=== PATIENT | male | born 1955 | race Two or more races ===

== ENCOUNTER 2020-12-10 02:51 | Inpatient (IN) | payer BC, OTHER ==
[~2020-12-10] VITALS: Ht 177.8 cm; Wt 84.8 kg
--- NOTE | 2020-12-10 03:10 | NUR ---
[id number] c/o anxiety after taking Marijuana Edibles. Fiance called 911. Patient alert and oriented x3. ambulatory with non labored breathing. Patient placed on monitor.
[2020-12-10 03:57] LABS: BASOPHILS % (AUTO) 0.3 % (0.0-2.0); HEMATOCRIT 36 % (39-51); HEMOGLOBIN 12.1 g/dL (13.5-17.5); LYMPHOCYTES # (AUTO) 0.7 K/uL (0.8-4.8); MEAN CORPUSCULAR HGB CONC 33 g/dl (31.0-36.0); MEAN CORPUSCULAR VOLUME 91 fL (80-96); MONOCYTES # (AUTO) 0.4 K/uL (0.1-1.30); NEUTROPHILS # (AUTO) 2.9 K/uL (1.8-8.9); NEUTROPHILS % (AUTO) 65.7 % (43.0-81.0); PLATELET COUNT (AUTO) 138 K/uL (150-450); RED BLOOD CELL COUNT(AUTO) 4.01 MIL/uL (4.5-6.0); WHITE BLOOD COUNT (AUTO) 4.5 K/uL (4.3-11.0)
[2020-12-10 03:59] LABS: CALCIUM, SERUM 8.9 mg/dL (8.5-10.1); CARBON DIOXIDE 28 mmol/L (21-32); CHLORIDE 106 mmol/L (98-107); CREATININE 1.1 mg/dL (0.6-1.3); GLUCOSE 96 mg/dL (74-106); POTASSIUM 4.2 mmol/L (3.5-5.1); SODIUM SERUM 143 mmol/L (136-145); UREA NITROGEN, BLOOD 18 mg/dL (7-18)
--- NOTE | 2020-12-10 03:59 | NUR ---
PT TALKING TO NEUROLOGIST ON TELEHEALTH COMPUTER.
--- NOTE | 2020-12-10 04:07 | NUR ---
JULIÁN TOMAS TALKING TO NEUROLOGIST OVER THEPHONE.
[2020-12-10 04:18] LABS: CHOLESTEROL 125 mg/dL (<200); HDL CHOLESTEROL 50 mg/dL (40-60); LDL 58 mg/dL (0-99); TRIGLYCERIDES 65 mg/dL (30-150)
[2020-12-10] MEDS ORDERED: ASPIRIN 81 MG TAB.CHEW ONE (05:23)
[2020-12-10] MEDS ORDERED: ASPIRIN 81 MG TAB.CHEW PO ONE (05:30)
--- NOTE | 2020-12-10 05:55 | NUR ---
CALLED NURSING SUP FOR BED ASSIGNEMENT
[2020-12-10 06:34] LABS: EOSINOPHILS % (MANUAL) 7 % (0-4); LYMPHOCYTES % (MANUAL) 8 % (16-48); MONOCYTES % (MANUAL) 4 % (0-11.0); NEUTROPHILS % (MANUAL) 81 (42-76)
--- NOTE | 2020-12-10 06:34 | NUR ---
Patient is sleeping. easily arousable. breathing evenly and unlabored on room air. connected to the monitor. Side rails are up for safety. Call light is within reach.
[2020-12-10] MEDS ORDERED: CLOP75TA15 PO (08:16)
[2020-12-10] MEDS ORDERED: BUPR-319 PO (08:16)
[2020-12-10] MEDS ORDERED: ESCI10TA PO (08:16)
[2020-12-10] MEDS ORDERED: TAMS-12 PO (08:16)
[2020-12-10] MEDS ORDERED: BUPR75TA8 PO (08:16)
[2020-12-10] MEDS ORDERED: ROSU20TA32 PO (08:16)
[2020-12-10] MEDS ORDERED: PANT40TA49 PO (08:16)
[2020-12-10] MEDS ORDERED: ATEN25TA PO (08:16)
--- NOTE | 2020-12-10 08:16 | NUR ---
ROOM 328-2
--- NOTE | 2020-12-10 08:50 | NUR ---
REPORT GIVEN TO DANIELLE RIVERS FOR INDIRA
[2020-12-10 09:35] VITALS: BP 137/79
--- NOTE | 2020-12-10 10:09 | NUR ---
TELE/RN NOTES ADMITTED A MALE PATIENT ALERT AND ORIENTED X3 CONFUSED. PATIENT IS ON ROOM AIR. PATIENT IN NO APPARENT RESPIRATORY DISTRESS NOTED. NO COMPLAINED OF PAIN AT THIS TIME. INITIAL ASSESSMENT WAS DONE AND RECORDED. VITAL SIGN TAKEN AND RECORDED. WILL CONTINUE TO MONITOR.
[2020-12-10] MEDS ORDERED: ATORVASTATIN 40 MG TABLET PO SCH ×3 (10:30→22:00)
[2020-12-10] MEDS ORDERED: ASPIRIN EC 325 MG TABLET.DR PO SCH (10:30)
[2020-12-10] MEDS ORDERED: ACETAMINOPHEN 325 MG TABLET PO PRN ×2 (10:30)
[2020-12-10] MEDS: PANTOPRAZOLE 40 MG TABLET.DR PO SCH (10:37)
[2020-12-10] MEDS: ASPIRIN EC 325 MG TABLET.DR PO SCH (10:37)
[2020-12-10] MEDS ORDERED: ONDANSETRON HCL/PF 4 MG/2 ML VIAL IV PRN (11:00)
--- NOTE | 2020-12-10 11:51 | NUR ---
TELE/RN NOTES PATIENT LEFT THE ROOM FOR MRI.
[2020-12-10] MEDS ORDERED: BLOOD SUGAR DIAGNOSTIC 1 EACH STRIP IN SCH ×3 (12:00)
[2020-12-10] MEDS: BLOOD SUGAR DIAGNOSTIC 1 EACH STRIP IN SCH ×3 (12:05→22:11)
--- NOTE | 2020-12-10 12:50 | NUR ---
TELE/RN NOTES PATIENT CAME BACK IN THE ROOM. PATIENT IS ON ROOM AIR. PATIENT IN NO APPARENT RESPIRATORY DISTRESS NOTED. NO COMPLAINED OF PAIN NOTED. WILL CONTINUE TO MONITOR.
[2020-12-10 16:00] VITALS: BP 124/60
--- NOTE | 2020-12-10 18:23 | NUR ---
TELE/RN CLOSING NOTES PATIENT IS AWAKE ALERT AND ORIENTED X3. PATIENT IS ON ROOM AIR. PATIENT IN NO APPARENT RESPIRATORY DISTRESS NOTED. NO COMPLAINED OF PAIN NOTED AT THIS TIME. ALL DUE MEDICATIONS WAS GIVEN. IV ACCESS AT RIGHT AC # 18 G PATENT AND INTACT. TELE MONITOR READING SINUS RHYTHM 75 BPM. SAFETY PRECAUTION WAS IN PLACED. BED IN LOWEST POSITION AND LOCKED. SIDERAILS UP X2. WILL EMDORSED TO MEMBER OF CONGRESS FOR INDIRA.
--- NOTE | 2020-12-10 19:37 | NUR ---
RAMP SUPERVISOR OPENING NOTE PATIENT IN BED WITH EYES CLOSED, EASY TO AROUSE. A/OX3. NO S/S OF APPARENT DISTRESS. DENIES PAIN AT THIS TIME. TELE MONITOR READING NSR 69 BPM. NO FLUIDS RUNNING AT THIS TIME. SAFETY IN PLACE. WILL CONTINUE TO MONITOR.
[2020-12-10 20:00] VITALS: BP 118/65
--- NOTE | 2020-12-10 21:00 | NUR ---
DIAMOND SELECTOR NOTE CALLED [facility] REGARDING PATIENT LIPITOR. THERE WAS TWO 2200 DOSE OF LIPITOR 40MG ORDERED. PER PHARMACISTS TWO DIFFERENT PEOPLE ORDERED IT HENCE THEY DISCONTINUED ONE. PATIENT HAS ORDER OF LIPITOR 40 MG ONLY AT 2200.
--- NOTE | 2020-12-10 22:13 | NUR ---
telephone maintenance mechanic notes non-admin one dose of lipitor 40mg. double ordered. pharmacy said they will discontinue but have not yet.
[2020-12-11] VITALS: BP 121/60
[2020-12-11 04:00] VITALS: BP 135/76
--- NOTE | 2020-12-11 06:52 | NUR ---
RACEBOOK WRITER CLOSING PATIENT IN BED. NO S/S OF APPARENT DISTRESS, TOLERATING ROOM AIR. DENIES PAIN AND ANXIETY TOLERABLE PER PATIENT. PATIENT TELE MONITOR BEEN READING BBB 70 BPM. ALL NEEDS ATTENDED. NO FLUIDS RUNNING AT THIS TIME. ALL SCHED MEDS ADMINISTERED. NO SIGNIFICANT CHANGE SINCE LAST ENDORSEMENT. WILL ENDORSE CARE TO MORNING SHIFT RN.
[2020-12-11 07:03] LABS: BASOPHILS % (AUTO) 0.3 % (0.0-2.0); EOSINOPHILS % (AUTO) 7.6 % (0.0-6.0); HEMATOCRIT 37 % (39-51); HEMOGLOBIN 12.4 g/dL (13.5-17.5); LYMPHOCYTES # (AUTO) 0.7 K/uL (0.8-4.8); LYMPHOCYTES % (AUTO) 18.2 % (20.0-44.0); MEAN CORPUSCULAR HGB CONC 34 g/dl (31.0-36.0); MEAN CORPUSCULAR VOLUME 91 fL (80-96); MONOCYTES # (AUTO) 0.4 K/uL (0.1-1.30); MONOCYTES % (AUTO) 11.5 % (2.0-12.0); NEUTROPHILS # (AUTO) 2.3 K/uL (1.8-8.9); NEUTROPHILS % (AUTO) 62.4 % (43.0-81.0); PLATELET COUNT (AUTO) 144 K/uL (150-450); RED BLOOD CELL COUNT(AUTO) 4.05 MIL/uL (4.5-6.0); WHITE BLOOD COUNT (AUTO) 3.7 K/uL (4.3-11.0)
[2020-12-11] MEDS ORDERED: PANTOPRAZOLE 40 MG TABLET.DR PO SCH (07:30)
[2020-12-11 07:31] LABS: CALCIUM, SERUM 8.4 mg/dL (8.5-10.1); POTASSIUM 4.1 mmol/L (3.5-5.1)
--- NOTE | 2020-12-11 07:37 | NUR ---
RN NOTES RECEIVED PATIENT IN BED, ASLEEP, AROUSABLE EASILY. A/O X 3. ON ROOM AIR, NO SOB NOTED, NO ACUTE RESPIRATORY DISTRESS. NO C/O PAIN AT THIS TIME. ON TELE NSR WITH BBB @70'S. WITH RAC #18G SL, PATENT AND INTACT. SAFETY MEASURES IN PLACE. BED LOCKED AND ON LOWEST POSITION, SR UP, CALL LIGHT PLACED WITHIN EASY REACH. WILL CONTINUE TO MONITOR.
[2020-12-11] MEDS: BLOOD SUGAR DIAGNOSTIC 1 EACH STRIP IN SCH ×2 (07:45→11:26)
[2020-12-11 08:00] VITALS: BP 138/73
[2020-12-11] MEDS: PANTOPRAZOLE 40 MG TABLET.DR PO SCH (08:09)
[2020-12-11] MEDS: ASPIRIN EC 325 MG TABLET.DR PO SCH (08:10)
[2020-12-11 08:12] VITALS: BP 138/73
[2020-12-11] MEDS ORDERED: CLOPIDOGREL BISULFATE 75 MG TABLET PO SCH (09:00)
[2020-12-11] MEDS ORDERED: ATENOLOL 25 MG TABLET PO SCH (09:00)
[2020-12-11] MEDS ORDERED: buPROPion 75 MG TABLET PO SCH (09:00)
[2020-12-11] MEDS ORDERED: TAMSULOSIN 0.4 MG CAP.SR.24H PO SCH (09:00)
[2020-12-11] MEDS ORDERED: ESCITALOPRAM OXALATE (10 MG) 10 MG TABLET PO SCH (09:00)
[2020-12-11 09:56] LABS: BAND % (MANUAL) 1 % (0.0-5.0); EOSINOPHILS % (MANUAL) 6 % (0-4); LYMPHOCYTES % (MANUAL) 21 % (16-48); MONOCYTES % (MANUAL) 8 % (0-11.0); NEUTROPHILS % (MANUAL) 64 (42-76)
[2020-12-11] MEDS ORDERED: ASPI-495 PO (12:39)
--- NOTE | 2020-12-11 13:40 | NUR ---
SS consult: SS consult requested for stroke protocol . Pt. is a 65-year-old male. Per the EMR the pt. had complaints of numbness to the left side of his body as well trouble speaking/finding words. Upon SS Assessment, pt. was A&O x4. Pt. stated they were having stroke symptoms and his [facility] sherman ([phone]) called the ambulance. Pt. appeared well-groomed and was cooperative throughout assessment. Pt. presented with an euthymic mood. Pt. presented with a circumstantial thought process and pressured speech. Pt.s [facility] sherman ([phone]) was bedside. Pt. stated he lives with Justa at [address] [place] [address]. Pt. stated they are ambulatory and independent with his ADLs. SW explored pt.s financial status. Pt. stated they did not receive SSI, GR, or Disability. SW explored substance abuse HX and pt. denied alcohol and drug abuse. SW explored psychiatric history. Pt. stated they have a history of depression and have been on medication for this. Pt. denied SI/HI. Pt. stated they had visual hallucinations prior to admission, and denied current hallucinations. SW completed post stroke depression scale and pt. scored an 8. Pt. stated he has been receiving chemo treatment which has been affecting mood/appetite. RAHUL spoke with nurse Vale to request a psych evaluation. Plan: Upon discharge, pt. will return home with [facility] ([phone]) at [address] [place] [address]. SW will remain available as needed. RAHUL provided pt. with post stroke empowerment paperwork and pt. accepted it. Addendum: 12/11/20 at 1553 by USHA KAY Correction: Pt. scored 11 on the Post Stroke Depression Scale.
--- NOTE | 2020-12-11 15:02 | NUR ---
RUBBER COVERING MACHINE OPERATOR NOTES PATIENT DISCHARGE HOME IN STABLE CONDITION. ALERT AND ORIENTED X4. ABLE TO MAKE NEEDS KNOWN. VITAL SIGNS TAKEN, STABLE, AND RECORDED. ALL BELONGINGS ACCOUNTED FOR, ALL FORMS SIGNED. IV ACCESS ON RAC REMOVED, NO ACTIVE BLEEDING NOTED, DRY PRESSURE DRESSING APPLIED TO SITE. NAME ARMBAND REMOVED. HEALTH TEACHINGS/DISCHARGE INSTRUCTIONS GIVEN TO PATIENT AND VERBALIZED UNDERSTANDING. PATIENT LEFT UNIT, AMBULATORY AT 1500 ACCOMPANIED BY EARL JUNIOR. CHARGE NURSE AWARE OF DISCHARGE.
== END 2020-12-11 15:00 | disposition home or self-care (01) | DRG 917 ==
LOC: ER 02:53 → TELE 08:30 → MED 12-11 08:54
PROVIDERS: ADMIT Nurse Practitioner Family; ATTEND Nurse Practitioner Family
DX: T40.711A Poisoning by cannabis, accidental (unintentional), initial encounter (principal); G92.8 Other toxic encephalopathy; C22.9 Malignant neoplasm of liver, not specified as primary or secondary; I10 Essential (primary) hypertension; F41.9 Anxiety disorder, unspecified; Z20.822 Contact with and (suspected) exposure to COVID-19; F12.90 Cannabis use, unspecified, uncomplicated; I25.10 Atherosclerotic heart disease of native coronary artery without angina pectoris; D64.9 Anemia, unspecified; F32.A Depression, unspecified; Z79.82 Long term (current) use of aspirin; Z95.5 Presence of coronary angioplasty implant and graft; Y92.009 Unspecified place in unspecified non-institutional (private) residence as the place of occurrence of the external cause
CPT/HCPCS: 36415; 70450-TC; 70547-TC; 70551-TC; 71045-TC; 80048-TC; 80061-TC; 82962-TC; 84439-TC; 84443-TC; 84484-TC; 85025-TC; 85652-TC; 85730-TC; 87081-TC; 92521; 92526; 92611-TC; 93307-TC; 97116-TC; 97530-TC; C9803; G0378; G0480; J2405